=== PATIENT | female | born 1955 | race Caucasian/White ===

== ENCOUNTER 2016-08-15 07:23 | Day surgery (SDC) | payer MEDICARE, BC ==
[2016-08-13 08:44] VITALS: BMI 25.5
[~2016-08-15 07:23] MED LIST: LACTATED RINGERS 1,000 ML IV SCH
[2016-08-15 08:31] VITALS: TEMP 98.3
[2016-08-15] MEDS ORDERED: MIDAZOLAM 2 MG/2 ML VIAL ONE (08:33)
[2016-08-15] MEDS ORDERED: PROPOFOL 10 MG/ML 20 ML VIAL IV ONE (08:33)
[2016-08-15] MEDS ORDERED: fentaNYL (PF) 50 MCG/ML 2 ML AMP ONE (08:33)
--- NOTE | 2016-08-15 08:54 | P.PCN ---
Date of Procedure: 08/15/16 Procedure(s) Performed: BRIEF HISTORY: Patient is a 61-year-old pleasant white female, scheduled for an elective colonoscopy as a part of evaluation of intermittent rectal bleeding for the last 2 months duration. Her last colonoscopy was in 2005 and was within normal limits. PROCEDURE PERFORMED: Colonoscopy. PREOPERATIVE DIAGNOSIS: Rectal bleeding. IV sedation per Anesthesia. PROCEDURE: After informed consent was obtained, the patient, was brought into the endoscopy unit. IV conscious sedation was administered by Anesthesia under continuous monitoring. Initially the Olympus CF-160 flexible video colonoscope was then inserted in the rectum, gradually advanced into the cecum without any difficulty. Careful examination was performed as the scope was gradually being withdrawn. Ileocecal valve and the appendiceal orifice were visualized and appeared normal. Prep was excellent. Mucosa of the cecum, ascending colon, transverse colon, descending colon, sigmoid colon, and rectum appeared normal. Scattered sigmoidal diverticulosis seen. Retroflexion was performed in the rectum and small internal hemorrhoids were seen. The patient tolerated the procedure well. IMPRESSION: Normal-appearing colon from rectum to cecum with no evidence of colorectal neoplasia. Small internal hemorrhoids Scattered sigmoid diverticulosis. RECOMMENDATIONS: Findings of this examination were discussed with the patient as well as her family. She was advised to be a high-fiber diet and take fiber supplements a regular basis. She can have a repeat screening colonoscopy in 10 years.
[2016-08-15 08:58] VITALS: RESP 16
[2016-08-15 09:20] VITALS: BP 109/65; PULSE 56
--- NOTE | 2016-08-28 09:41 | CDI ---
Dr. Dilan Mcintyre, Due to new rules about charging for conscious sedation, we noted conflicting information about type of sedation between your procedure note (stating IV CONSCIOUS sedation under Procedure heading) and Anesthesia Record which states MAC sedation. Because the word CONSCIOUS now has a different meaning for billing, we need you to stop dictating conscious sedation when Anesthesia is involved on your cases. FOR THIS CASE, WE NEED YOU TO DO ADDENDUM TO YOUR PROCED NOTE THAT SAYS "MAC" SEDATION instead of CONSCIOUS SEDATION. Thank you roopa much for your assistance with this important billing compliance documentation issue. Sincerely, Alli Banuelos--metal organ pipe maker Ileana Mckinney MBA, PLAN EXAMINER, [facility] [place], Francoise Pisano [phone] [facility]ITAL[facility]
--- NOTE | 2016-10-08 11:56 | PCN ---
DATE OF SERVICE: 08/15/2016 ADDENDUM: General anesthesia was utilized instead of IV conscious sedation.
== END 2016-08-15 09:50 | disposition home or self-care (01) ==
LOC: ORWHC2ENDO 07:23
PROVIDERS: ATTEND Internal Medicine Gastroenterology
DX: K62.5 Hemorrhage of anus and rectum (principal); K57.30 Diverticulosis of large intestine without perforation or abscess without bleeding; K64.8 Other hemorrhoids; G43.909 Migraine, unspecified, not intractable, without status migrainosus; Z88.5 Allergy status to narcotic agent; Z88.8 Allergy status to other drugs, medicaments and biological substances; Z79.891 Long term (current) use of opiate analgesic; Z79.82 Long term (current) use of aspirin; Z79.899 Other long term (current) drug therapy
CPT/HCPCS: 45378; J2250; J3010; J2704